=== PATIENT | female | born 1965 | race Caucasian/White ===

== ENCOUNTER → 2017-12-13 | Outpatient (CLI) | payer OTHER ==
--- NOTE | 2017-12-13 13:33 | RAD ---
EXAM: Head CT without contrast. HISTORY: Intractable headache. TECHNIQUE: Computed tomographic images of the head were obtained without contrast. *One or more of the following individualized dose reduction techniques were utilized for this examination: 1. Automated exposure control. 2. Adjustment of the mA and/or kV according to patient size. 3. Use of iterative reconstruction technique. COMPARISON: None. FINDINGS: There is no acute or subacute extra-axial or intraparenchymal hemorrhage. There is no mass effect or midline shift. There is no hydrocephalus. The yang-white matter differentiation pattern is intact. The visualized portions of the orbits, paranasal sinuses and mastoid air cells are unremarkable. No suspicious calvarial lesion is seen. IMPRESSION: No acute intracranial findings. Electronically signed by: Elda Stanley MD (12/13/2017 1:29 PM) [place] [id number]
== END | disposition home or self-care (01) ==
LOC: CT 11:40
PROVIDERS: ATTEND Preventive Medicine Occupational Medicine
DX: G44.311 Acute post-traumatic headache, intractable (principal)
CPT/HCPCS: 70450